=== PATIENT | female | born 2000 | race Hispanic/Latino ===

== ENCOUNTER → 2021-05-24 | Outpatient (CLI) | payer OTHER | LOC: M LABSMTC 11:59 | PROVIDERS: ATTEND Pediatrics | DX: Z20.828 Contact with and (suspected) exposure to other viral communicable diseases (principal) | CPT/HCPCS: C9803; U0003 ==

== ENCOUNTER → 2022-02-23 | Outpatient (CLI) | payer OTHER | LOC: M WHC 02-12 09:44 | PROVIDERS: ATTEND Advanced Practice Midwife | DX: O30.011 Twin pregnancy, monochorionic/monoamniotic, first trimester (principal); Z3A.14 14 weeks gestation of pregnancy; O32.2XX1 Maternal care for transverse and oblique lie, fetus 1; O32.2XX2 Maternal care for transverse and oblique lie, fetus 2; O20.8 Other hemorrhage in early pregnancy ==

== ENCOUNTER → 2022-03-02 | Outpatient (CLI) | payer OTHER ==
[2022-03-02 13:56] LABS: HEMATOCRIT 37.9 % (36.0-47.0); HEMOGLOBIN 12.8 g/dl (12.0-15.5); MEAN CORPUSCULAR HEMOGLOBIN 28.8 pg (27.0-33.0); MEAN CORPUSCULAR HGB CONC 33.8 g/dl (32.0-36.5); MEAN CORPUSCULAR VOLUME 85.4 fl (80.0-96.0); PLATELET COUNT, AUTOMATED 275 10^3/uL (150-450); RED BLOOD COUNT 4.44 10^6/uL (4.00-5.40); WHITE BLOOD COUNT 9.9 10^3/uL (4.0-10.0)
[2022-03-02 14:43] LABS: GC DNA AMPLIFICATION NEGATIVE (NEGATIVE)
[2022-03-02 15:33] LABS: HIV 1&2 SCREEN CENTAUR NEGATIVE (NEGATIVE)
== END ==
LOC: M PLALAB 11:09
PROVIDERS: ATTEND Family Medicine
DX: O30.011 Twin pregnancy, monochorionic/monoamniotic, first trimester (principal); Z3A.00 Weeks of gestation of pregnancy not specified

== ENCOUNTER → 2022-04-19 | Outpatient (CLI) | payer OTHER | LOC: M WHC 13:32 | PROVIDERS: ATTEND Obstetrics & Gynecology | DX: O30.011 Twin pregnancy, monochorionic/monoamniotic, first trimester (principal); Z3A.21 21 weeks gestation of pregnancy ==